=== PATIENT | female | born 1955 | race Caucasian/White ===

== ENCOUNTER → 2019-03-03 18:03 | Outpatient (CLI) | payer BC ==
[2013-02-04 11:04] VITALS: BMI 32.2
[~2019-03-03 18:03] MED LIST: BUDEPRION XL150 MG PO; CATAPRES0.1 MG PO; CELEXA40 MG PO; ESGIC TABLET1 TAB PO; MULTI-DAY VITAM1 TAB PO; NORCO 10/325 TA1 TA1 PO; OPANA ER20 MG PO; OXYCONTIN30 MG PO; PERCOCET 10/3251 TA1 PO; PRINZIDE 10/12.1 TAB PO; SOMA350 MG PO; WELLBUTRIN XL150 M1 PO; WELLBUTRIN100 MG PO; XANAX2 MG PO; XARELTO10 MG PO
[2019-03-03 19:03] LABS: BASOPHILS 0.7 % (0-2); EOSINOPHILS 2.2 % (0-7); HEMATOCRIT 33.3 % (36.0-48.0); HEMOGLOBIN 9.8 g/dL (12-16); IMMATURE GRANULOCYTES 0.1 % (0-5); LYMPHOCYTES 41.6 % (15-50); MCH 22.3 pg (26.0-34.0); MCHC 29.4 g/dL (31.0-37.0); MCV 75.9 fL (80.0-100.0); MEAN PLATELET VOLUME 9.4 fL (7.4-10.4); MONOCYTES 8.4 % (2-11); PLATELET COUNT 412 10x3/uL (130-400); RBC 4.39 10x6/uL (4.00-5.40); RDW 20.1 % (11.5-14.5); WBC 6.9 10x3/uL (4.8-10.8)
[2019-03-03 20:08] LABS: ERYTHROCYTE SEDIMENTATION RATE 41 mm/hr (0-30)
== END | disposition home or self-care (01) ==
LOC: D.LABREF 18:03
PROVIDERS: ATTEND Orthopaedic Surgery
DX: M17.11 Unilateral primary osteoarthritis, right knee (principal)

== ENCOUNTER 2019-04-22 08:52 | Outpatient (CLI) | payer BC ==
[~2019-04-22] VITALS: Ht 167.6 cm; Wt 90.0 kg
--- NOTE | ~2019-04-22 | HEMODYNAMI ---
PATIENT:SRINIVASAN ALVA MEDICAL RECORD: [id number] : 57 LOCATION:[facility] D.2[address] [facility]# [id number] ADMISSION DATE: 04/22/19 Generatedon:04/22/201915:52 Patient name: SRINIVASAN ALVA Patient #: [id number] SSN: [id number] : 1955 Date of study: 04/22/2019 Page: Of Hemodynamic Procedure Report Patient Data Patient Demographics Procedure consent was obtained First Name: SRINIVASAN Gender: Female Last Name: ARTIE : 1955 Middle Initial: H Age: 63 year(s) Patient #: [id number] Race: SSN: [id number] Additional ID: [id number] Contact details Address: [address] [place] [address] State: [place] City: [place] Zip code: [address] Past Medical History Allergies: No known allergies Admission Admission Data Admission Date: 04/22/2019 Admission Time: 8:52 Arrival Date: 04/22/2019 Arrival Time: 0:00 Admit Source: Emergency Insurance Payor: Private department health insurance Room #: D.2114 [facility] #: [id number] Height (in.): 66.14 BSA: 2 (m2) Height (cm.): 168 BMI: 31.89 (kg/m2) Weight (lbs.): 198.42 Weight (kg.): 90 Lab Results Lab Result Date: 04/22/2019 Lab Result Time: 0:00 Biochemistry Name Units Result Min Max BUN mg/dl 14 --(--*-)-- 7 18 CK-MB ng/ml 0.4 --(*---)-- 0 3.6 Creatinine mg/dl 0.9 --(-*--)-- 0.6 1.3 eGFR ml/min 67.11152 *-(----)-- 90 120 NONAFRICAN Troponin l ng/ml 0.017 --(-*--)-- 0 0.06 CBC Name Units Result Min Max Hematocrit % 32.9 *-(----)-- 42 54 Hemoglobin g/dl 10.2 *-(----)-- 13.5 17.5 Procedure Procedure Types Cath Procedure Diagnostic Procedure [facility] w/Coronaries FFR/IVUS FFR Initial FFR Additional Sedation Charges Moderate Sedation up to 15 minutes PCI Procedure Coronary Stent Coronary Stent Initial x2 Hemochron ACT Test Procedure Description Procedure Date Procedure Date: 04/22/2019 Procedure Start Time: 15:26 Procedure End Time: 15:50 Procedure Staff Name Function Ramirez Guy MD Performing Physician Woodrow Laguerre RT Monitor Jacinda Nielsen RN Nurse Marbella Cox RT Scrub Indication Chest pain Procedure Data Cath Procedure Fluoroscopy Diagnostic fluoroscopy Total fluoroscopy Time: 5.1 time: 5.1 min min Diagnostic fluoroscopy Total fluoroscopy dose: dose: 314.07 mGy 314.07 mGy Contrast Material Contrast Material Type Amount (ml) Isovue 370 105 Entry Location Entry Primary Successful Side Size Upsize Upsize Entry Closure Guerrero ccessful Closure Location (Fr) 1 (Fr) 2 (Fr) Remarks Device Remarks Femoral Right 6 Fr Mechanical artery Short Compression Estimated blood loss: 10 ml Diagnostic catheters Device Type Used For End Catheter Placement DIAGNOSTIC Hines 110cm 5 Procedure Fr catheter ([id number]) Procedure Complications No complications Procedure Medications Medication Administration Route Dosage 0.9% NaCl I.V. 100 ml/hr Lidocaine 2% added to field 20 Heparin Flush Bag added to field 2 bags (1000units/500ml NS) Oxygen NC 2 l/min Versed I.V. 1 mg Fentanyl I.V. 50 mcg Fentanyl I.V. 50 mcg Versed I.V. 1 mg Versed I.V. 1 mg Heparin Bolus I.V. 4000 units Versed I.V. 1 mg Hemodynamics Rest BSA: 2 (m2) O2 Consumption: Estimated: 183.41 (ml/min) O2 Consumption indexed: E stimated:91.7 (ml/min/m) Heart Rate: 63 (bpm) Pressure Samples Time Site Value (mmHg) Purpose Heart Use Rate(bpm) 15:33 AO 106/55(77) Snapshot 71 Snapshots Pre Cath Intra NCS Post Cath Vital Signs Time Heart Resp SPO2 etCO2 NIBP Rhythm Pain Sedation Rate (ipm) (%) (mmHg) (mmHg) Status Level (bpm) 15:17:27 64 16 94 28.5 127/64(91) NSR (Missing) 10(A) 15:21:41 62 20 93 33 111/59(84) NSR (Missing) 10(A) 15:25:49 63 10 94 9 106/60(77) NSR (Missing) 9(A) 15:29:55 60 10 96 35.3 94/63(82) NSR (Missing) 9(A) 15:34:47 69 11 92 29.2 114/68(92) NSR (Missing) 9(A) 15:38:57 68 12 94 9.7 114/60(81) NSR (Missing) 9(A) 15:43:05 66 12 95 0 110/64(77) NSR (Missing) 9(A) 15:47:11 67 13 93 30 119/63(87) NSR (Missing) 10(A) Medications Time Medication Route Dose Verified Delivered Reason Notes Ef fectiveness by by 15:20:04 0.9% NaCl I.V. 100 Ramirez Jacinda used for ml/hr Malena MCNAIR Morales datastage architect 15:20:12 Lidocaine 2% added 20ml Ramirez Jacinda for local to vial Malena Christieelor anesthetic field RN 15:20:21 Heparin Flush added 2 Ramirez Jacinda used for Bag to bags Malena Sandovalor procedure (1000units/500ml field RN NS) 15:20:29 Oxygen NC 2 Ramirez Jacinda for low 02 l/min Malena Christieelor sats RN 15:22:06 Versed I.V. 1 mg Ramirez Jacinda for Malena MCNAIR Morales sedation RN 15:22:14 Fentanyl I.V. 50 Ramirez Jacinda for mcg Malena MCNAIR Morales sedation RN 15:26:18 Fentanyl I.V. 50 Ramirez Jacinda for mcg Malena MCNAIR Morales sedation RN 15:26:24 Versed I.V. 1 mg Ramirez Jacinda for Malena MCNAIR Morales sedation RN 15:30:31 Versed I.V. 1 mg Ramirez Jacinda for Malena MCNAIR Morales sedation RN 15:34:06 Versed I.V. 1 mg Ramirez Jacinda for Malena MCNAIR Morales sedation RN 15:36:21 Heparin Bolus I.V. 4000 Ramirez Monaco Per verified units Malena Nielsen physician with dr. BRENDA guy Procedure Log Time Note 14:45:02 Woodrow Laguerre RT(R) sent for patient. Start room use. 14:46:34 Informed consent obtained and on chart 14:47:25 Indication : Chest pain 14:48:42 Procedure Status Urgent Heart Cath (IP). 14:48:53 Time tracking: Regular hours (M-F 7:00 - 5:00) 14:50:45 Arrival Date: 04/22/2019 12:00:00 AM 14:51:08 Insurance Payor : Private health insurance 14:51:13 Patient Height : 66.14 inches 14:51:19 Patient Weight : 198.42 lbs 14:51:23 Admit Source: Emergency department 14:52:33 Lab Result : CK-MB 0.4 ng/ml 14:52:33 Lab Result : Creatinine 0.9 mg/dl 14:52:33 Lab Result : BUN 14 mg/dl 14:52:33 Lab Result : Hematocrit 32.9 % 14:52:33 Lab Result : eGFR NONAFRICAN 67.36319 ml/min 14:52:33 Lab Result : Troponin l 0.017 ng/ml 14:52:33 Lab Result : Hemoglobin 10.2 g/dl 14:53:02 Patient allergic to No known allergies 14:53:13 Lab results completed and on chart. 14:56:29 Risk of Mortality: 4.9 14:56:35 Risk of blood transfusion: 8.1 14:56:41 Risk of MORTEZA: 1.8 14:56:49 Stress Test: no; N/A ? 14:58:12 Plan of Care:Hemodynamics will remain stable., Cardiac rhythm will remain stable., Comfort level will be maintained., Respiratory function will remain adequate., Patient/ family verbilizes understanding of procedure., Procedure tolerated without complication., Recovers from procedure without complications.. 15:09:38 Patient received from Med II to CCL 3 Alert and oriented. Tansferred to table in Supine position. 15:16:17 Vital chart was started 15:20:04 0.9% NaCl 100 ml/hr I.V. was administered by Jacinda Nielsen RN; used for procedure; Verbal order read back and verified. 15:20:12 Lidocaine 2% 20ml vial added to field was administered by Jacinda Nielsen RN; for local anesthetic; Verbal order read back and verified. 15:20:21 Heparin Flush Bag (1000units/500ml NS) 2 bags added to field was administered by Jacinda Nielsen RN; used for procedure; Verbal order read back and verified. 15:20:29 Oxygen 2 l/min NC was administered by Jacinda Nielsen RN; for low 02 sats; Verbal order read back and verified. 15:20:55 Warm blankets applied, and manuel hugger turned on for patient comfort. 15:20:56 Correct patient and procedure confirmed by team. 15:20:56 ECG and BP/O2 sat monitors applied to patient. 15:20:57 Baseline sample Acquired. 15:21:01 Rhythm: sinus rhythm 15:21:02 Full Disclosure recording started 15:21:07 H&P Date Dictated: 04/22/2019 Emergent; H&P N/A. 15:21:08 Pre-procedure instructions explained to patient. 15:21:08 Pre-op teaching completed and patient verbalized understanding. 15:21:10 Family in waiting room. 15:21:12 Patient NPO since Midnight. 15:21:15 Is the patient allergic to Iodine/contrast media? No. 15:21:16 Is patient on blood thinner?Yes 15:21:18 ACC The patient was administered the following blood thiners within the last 24 hours: ACCPlavix 15:21:21 Patient diabetic? No. 15:21:24 Previous problem with sedation/anesthesia? No ? 15:21:25 Snore? Yes 15:21:26 Sleep apnea? No 15:21:27 Deviated septum? No 15:21:28 Opens mouth fully? Yes 15:21:28 Sticks out tongue? Yes 15:21:30 Airway obstruction? No ? 15:21:34 Dentures? Yes IN TIGHT 15:21:38 Pre procedure: right dorsailis pedis pulse 1+ Palpable, but thready & weak; easily obliterated 15:21:40 Modified Bishop's test Ulnar < 7 seconds 15:21:43 Patient pain scale 0/10 ?. 15:21:48 IV patent on arrival in right forearm with 0.9% NaCl at [facility]. 15:21:58 Right Radial & Right Groin area was prepped with chlora-prep and draped in sterile fashion 15::59 Alarms reviewed by R. N. 15::59 Sharps counted by scrub and verified by R.N. 15:22:02 Use device set Radial Dx or PCI 15:22:04 Tegaderm 4 x 4 (1626W) opened to sterile field. 15:22:05 ACIST Syringe (80721) opened to sterile field. 15:22:05 Medline Cath Pack ([id number]) opened to sterile field. 15:22:06 Versed 1 mg I.V. was administered by Jacinda Nielsen RN; for sedation; Verbal order read back and verified. 15:22:06 Bag Decanter (2002S) opened to sterile field. 15:22:06 ACIST Hand Control (66818) opened to sterile field. 15:22:06 ACIST Manifold (59348) opened to sterile field. 15:22:07 MBrace Wrist Support (955108107) opened to sterile field. 15:22:08 EMERALD Guide Wire (836-445) opened to sterile field. 15:22:09 SHEATH 6FR RAIN (0953569) opened to sterile field. 15:22:14 Fentanyl 50 mcg I.V. was administered by Jacinda Nielsen RN; for sedation; Verbal order read back and verified. 15:22:46 ACC Patient presents with Unstable Angina CCS Anginal Class 4--Inability to carry out any physical activity w/o angina. Angina may occur at rest. 15:22:50 Physician arrived 15:22:50 --------ALL STOP TIME OUT------ 15:22:51 Final Timeout: patient, procedure, and site verified with staff and physician. All members of the team are in agreement. 15::59 Right Radial & Right Groin site verified by team. 15:23:04 Fire Safety Assessment: A--An alcohol-based skin anteseptic being used preoperatively., C--Open oxygen or nitrous oxide is being used., D--An ESU, laser, or fiber-optic light is being used. 15:23:07 Physical assessment completed. ASA score P 2 - A patient with mild systemic disease as per Ramirez Guy MD. 15:23:16 2) 60-89 Mildly reduced kidney function, and other findings (as for stage 1) point to kidney disease. 15:23:22 Maximum allowable contrast dose (3.7 X eGFR X 0.75)186 ml. 15::28 Sedation plan: IV Moderate Sedation Medication:Versed, Fentanyl 15::18 Fentanyl 50 mcg I.V. was administered by Jacinda Nielsen RN; for sedation; Verbal order read back and verified. 15::24 Versed 1 mg I.V. was administered by Jacinda Nielsen RN; for sedation; Verbal order read back and verified. 15::44 Procedure started. 15::48 Local anesthetic to right radial artery with Lidocaine 2% by Ramirez Guy MD.INITIAL ACCESS ONLY 15:27:06 Zero performed for pressure channel P1 15:27:21 Zero performed for pressure channel P1 15::24 Zero performed for pressure channel P1 15::26 Zero performed for pressure channel P1 15:27:29 Zero performed for pressure channel P1 15::31 Zero performed for pressure channel P1 15::49 A 6 Fr Short sheath was inserted into the Right Femoral artery 15:29:13 IV Extension Set opened to sterile field. 15:29:49 A DIAGNOSTIC Hines 110cm 5 Fr catheter (168920) was advanced over the wire and used for Procedure. 15:30:00 LV angiography performed. 15:30:03 LV gram done using ROYAL 15:30:22 EF : 60 % 15::26 Injector settings: Ml/sec: 5, Volume: 15, 15:30:31 Versed 1 mg I.V. was administered by Jacinda Nielsen RN; for sedation; Verbal order read back and verified. 15:31:22 LCA angiography performed. 15:31:24 ACCDominant side:Left 15:32:25 RCA angiography performed. 15:32:28 Catheter removed. 15:32:45 Use device set MALENA PCI 15:33:02 Concord Verrata Plus pressure wire (36260C) opened to sterile field. 15:33:08 GUIDE 6FR AR 1.0 catheter ([id number]) opened to sterile field. 15:33:33 6 Fr AR 1 guide catheter was inserted over the wire 15:34:06 Versed 1 mg I.V. was administered by Jacinda Nielsen RN; for sedation; Verbal order read back and verified. 15:34:23 FFR/IFR wire advanced. 15:34:32 Wire advanced across lesion. 15:35:08 pRCA lesion measured at 0.84 with IFR 15:35:37 Pre PCI Site: [place] pRCA has 70% stenosis. 15:35:41 ACC Pre-intervention LEWIS Flow is 3. 15:36:21 Heparin Bolus 4000 units I.V. was administered by Jacinda Nielsen RN; Per physician; verified with dr. guy Verbal order read back and verified. 15:36:27 Place stent Inflation Number: 1 A MITCHEL RX 3.0 x 12 stent ([id number]) was prepped and advanced across the Prox RCA 70. The stent was deployed at 17 SAFIA for 0:10 (min:sec) 0. 15:37:20 Inflation number: 2 The stent balloon was then re-inflated across the Prox RCA 0 to 21 SAFIA for 0:10 (min:sec) . 15:37:26 Stent catheter was removed intact over wire. 15:37:27 Wire removed. 15:37:27 Guide catheter removed. 15:37:52 Post PCI Site: [place] pRCA has 0% stenosis. 15:38:17 ACC Post-intervention LEWIS Flow is 3. 15:39:18 INFLATOR Merit BasixCompak (MZ1971) opened to sterile field. 15:39:24 GUIDE 6FR XBLAD 3.5 catheter ([id number]) opened to sterile field. 15:39:43 6 Fr XBLAD 3.5 guide catheter was inserted over the wire 15:39:46 FFR/IFR wire advanced. 15:40:18 Wire advanced across lesion. 15:42:02 mLAD lesion measured at 0.81 with IFR 15:42:09 Pre PCI Site: [place] mLAD has 70% stenosis. 15:42:13 ACC Pre-intervention LEWIS Flow is 3. 15:43:22 Place stent Inflation Number: 1 A MITCHEL RX 3.0 x 12 stent ([id number]) was prepped and advanced across the Mid LAD 70. The stent was deployed at 21 SAFIA for 0:10 (min:sec) 0. 15:43:54 Stent catheter was removed intact over wire. 15:43:55 Wire removed. 15:43:55 Guide catheter removed. 15:44:00 Post PCI Site: [place] mLAD has 0% stenosis. 15:44:02 ACC Post-intervention LEWIS Flow is 3. 15:44:07 ZEPHYR REGULAR TR BAND (652537) opened to sterile field. 15:44:18 Sheath removed intact; hemostasis achieved with Mechanical Compression to the Right Femoral artery. 15:44:20 Procedure ended.(Physican Out) 15:47:26 Fluoroscopy time 05.10 minutes. 15:47:31 Fluoroscopy dose: 314.07 mGy 15:47:31 Flurop Dose total: 314.07 15:47:43 Dose Area Product 64533.4 mGy/cm. 15:48:07 Contrast amount:Isovue 370 105ml. 15:48:10 Maximum allowable dose exceeded? No. 15:48:14 Sharps counted by scrub and verified by R.N. 15:48:16 [place] band inflated with 10cc of air. 15:48:18 Insertion/operative site no bleeding no hematoma. 15:48:18 Post Procedure Pulses reassessed and unchanged 15:48:21 Post-procedure physical assessment completed. ASA score P 2 - A patient with mild systemic disease as per Ramirez Guy MD. 15:48:23 Post procedure rhythm: unchanged. 15:48:26 Estimated blood loss: 10 ml 15:48:27 Post procedure instruction explained to patient.Patient verbalizes understanding. 15:48:28 Patient needs reinforcement of post procedure teaching. 15:48:56 Procedure type changed to Cath procedure, Diagnostic procedure, C, [facility] w/Coronaries, FFR/IVUS, FFR Initial, FFR Additional, Sedation Charges, Moderate Sedation up to 15 minutes, PCI procedure, Coronary Stent, Coronary Stent Initial x2, Hemochron ACT Test 15:48:58 Procedure and supply charges have been captured, reviewed, submitted and are correct. 15:49:00 Procedure Complication : No complications 15:49:42 Vital chart was stopped 15:49:44 [facility] Findings: MVD- PCI performed (see procedure note) 15:49:45 Operative report dictated upon procedure completion. 15:49:45 See physician's report for complete and final results. 15:50:16 ACT drawn and resulted at >400 TOO HIGH seconds. (normal therapeutic range 180-240 seconds). 15:50:34 Report given to PCU. 15:50:37 Patient transfered to PCU with Bed. 15:50:39 Procedure ended. 15:50:39 Full Disclosure recording stopped 15:51:37 End room use (Document Last) 15:51:48 End room use (Document Last) 15:52:15 End room use (Document Last) Intervention Summary Intervention Notes Time ActionType Lesion and Equipment Used Action# Pressure Duration Attributes 15:36:27 Place stent Prox RCA MITCHEL RX 3.0 x 1 17 00:10 12 stent ([id number]) 15:37:20 Reinflate Prox RCA MITCHEL RX 3.0 x 2 21 00:10 stent 12 stent balloon ([id number]) 15:43:22 Place stent Mid LAD MITCHEL RX 3.0 x 1 21 00:10 12 stent ([id number]) Device Usage Item Name Manufacture Quantity Catalog Hospital Part Current Minimal Lot# / Number Charge Number Stock Stock Serial# Code Tegaderm 4 x 4 3M 1 1626W 370253 338920 253552 5 (1626W) ACIST Syringe Acist 1 90200 459986 818073 870292 20 (85116) Medical Systems Inc Medline Cath Medline 1 [id number] 569837 74586 089280 5 Pack ([id number]) Bag Decanter Microtek 1 2001S 331512 12453 564912 5 (2002S) Medical Inc. ACIST Hand Acist 1 89474 120780 917447 452623 5 Control Medical (42881) Systems Inc ACIST Manifold Acist 1 32778 031173 279949 586684 5 (69116) Medical Systems Inc MBrace Wrist Advanced 1 140-0250-00 017813 67289 842572 5 Support Vascular (573628627) Dynamics EMERALD Guide Cardinal 1 562-588 332946 164229 881839 5 Wire (996-910) Health SHEATH 6FR Cardinal 1 2499411 608550 2523874 578268 5 RAIN (5450988) Health IV Extension Hospira 1 44260-37 074202 88375 979488 5 Set DIAGNOSTIC Terumo 1 40-1538 857525 348186 534018 5 Hines 110cm 5 Fr catheter (262407) Concord Concord 1 18282N 124837 081225213 537189 5 Verrata Plus pressure wire (35032I) GUIDE 6FR AR Medtronic 1 [id number] 647727 82208 244391 1 1.0 catheter (CI7NY48) MITCHEL RX 3.0 x Medtronic 2 [id number] 322672 3088994 732397 5 [id number] 12 stent [id number] ([id number]) INFLATOR Merit Merit 1 QA3085 221836 310159 036298 15 Cequens Medical (KC2360) GUIDE 6FR Cardinal 1 19392299 896204 932512 201613 10 XBLAD 3.5 Health catheter (04925691) ZEPHYR REGULAR Cardinal 1 630022 895295 2264603 571142 5 TR BAND Health (579197) Signature Audit [place] Stage Time Signature Unsigned Intra-Procedure 04/22/2019 Woodrow Laguerre 3:51:48 PM RT(R) Intra-Procedure 04/22/2019 Jacinda 3:52:15 PM Morales RN Intra-Procedure 04/22/2019 Ramirez Guy 3:52:41 PM [facility] [address] [place] [address]
[~2019-04-22 08:52] MED LIST changes: +HYDROCODON-ACE1 EAC7; -NORCO 10/325 TA1 TA1 PO
[2019-04-22] MEDS ORDERED: NORVASC10 MG PO (09:05)
[2019-04-22] MEDS ORDERED: LISINOPRIL40 MG PO (09:05)
[2019-04-22] MEDS ORDERED: TENORMIN50 MG PO (09:05)
[2019-04-22] MEDS ORDERED: BC POWDER (09:06)
[2019-04-22 09:26] LABS: BASOPHILS 0.5 % (0-2); EOSINOPHILS 2.1 % (0-7); HEMATOCRIT 32.9 % (36.0-48.0); HEMOGLOBIN 10.2 g/dL (12-16); IMMATURE GRANULOCYTES 0.2 % (0-5); LYMPHOCYTES 36.2 % (15-50); MCH 22.4 pg (26.0-34.0); MCV 72.1 fL (80.0-100.0); MEAN PLATELET VOLUME 9.6 fL (7.4-10.4); MONOCYTES 6.7 % (2-11); NEUTROPHILS 54.3 % (40-80); PLATELET COUNT 460 10x3/uL (130-400); RBC 4.56 10x6/uL (4.00-5.40); RDW 18.7 % (11.5-14.5); WBC 8.7 10x3/uL (4.8-10.8)
[2019-04-22 09:32] LABS: CALC OSMOLALITY 276 mosm/kg (275-300); CALCIUM 8.3 mg/dL (8.5-10.1); CARBON DIOXIDE 29.9 mmol/L (21.0-32.0); CHLORIDE - SERUM 99 mmol/L (98-107); CREATININE - SERUM 0.9 mg/dL (0.6-1.3); GLUCOSE 101 mg/dL (74-106); POTASSIUM - SERUM 3.4 mmol/L (3.5-5.1); SODIUM 138 mmol/L (136-145); UREA NITROGEN 14 mg/dL (7-18); eGFR NON AFRICAN AMERICAN 67 mL/min (90-120)
[2019-04-22 09:33] LABS: INR 0.97 (0.85-1.17); PROTIME 12.8 SECONDS (11.6-15.0)
[2019-04-22 09:34] LABS: APTT 37.1 SECONDS (22.8-39.4)
[2019-04-22 09:46] LABS: ALBUMIN 3.4 g/dL (3.4-5.0); ALKALINE PHOSPHATASE 167 U/L (30-120); ALT (SGPT) 16 U/L (10-68); BILIRUBIN - TOTAL 0.18 mg/dL (0.2-1.3); CKMB 0.4 U/L (0.0-3.6); CREATINE KINASE 64 UL (21-215); PROTEIN - SERUM 8.1 g/dL (6.4-8.2); TROPONIN-I < 0.017 ng/mL (0.000-0.060)
--- NOTE | 2019-04-22 15:48 | HP ---
PATIENT: SRINIVASAN ALVA MEDICAL RECORD: [id number] ACCOUNT: [id number] LOCATION:[address] : 57 ADMISSION DATE: 04/22/19 PCP: ROSETTA GREGORY MD HISTORY AND PHYSICAL EXAMINATION DIAGNOSES: 1. Unstable angina class IV. 2. Hypertension. 3. Hyperlipidemia. 4. Smoking. 5. Shortness of breath, dyspnea on exertion. HISTORY OF PRESENT ILLNESS: Mrs. Alva had her first chest pain approximately a week ago. She has had some mild episodes of chest pain throughout the week. She had a severe episode of chest pain today. She had over an hour of chest discomfort, it was atypical chest discomfort, a dull aching pressure sensation across the anterior chest, felt like a weight was on her chest. She was given a sublingual nitro. She had resolution of pain, the pain came back. She was given another sublingual nitro. She had resolution of it. The pain is now coming back again. She has a history of cardiac catheterization approximately 5 years ago with no intervention. She has been on aspirin daily and BC powder daily. PHYSICAL EXAMINATION: CONSTITUTIONAL/GENERAL APPEARANCE: Well nourished, well developed, appears stated age. EYES: Lids and conjunctivae noninjected. No discharge. No pallor. ENT: Lips within normal limit. No cyanosis. No pallor. NECK: Carotid arteries, bilateral normal upstroke. No bruits. No thrills. No jugular venous pressure or distention. CERVICAL LYMPH NODES: Nontender. Nonenlarged. THYROID: Not enlarged. No nodules. CARDIOVASCULAR: Precordial exam, nondisplaced. No heaves or pericardial thrills. Rate and rhythm, regular. Heart sounds, normal S1, normal S2. No S3, no gallop, no rub. Systolic murmur, not heard. Diastolic murmur, not heard. RESPIRATORY: Respiratory effort, unlabored. Normal curvature. No thoracic deformity. No chest wall tenderness. Percussion, resonant. Auscultation, clear. No wheezes, no rales, no rhonchi. ABDOMEN: Soft, nondistended, nontender. No abdominal pain, no vomiting and normal appetite. MUSCULOSKELETAL: No joint tenderness, normal gait, normal tone. SKIN: Warm and dry. OVERALL IMPRESSION: Unstable angina with recurrent pain. We will proceed with coronary angiography. Further care depends upon findings of the angiography. TRANSINT:[id number] Voice Confirmation ID: [id number] DOCUMENT ID: [id number] HISTORY AND PHYSICAL [id number] SRINIVASAN ALVA JEFFREY MD at 1548 CC: [id number] DICTATION DATE: 04/22/19 1033 INFORMATION ASSURANCE ANALYST: 04/22/19 1121 REG [facility] [address] [place] [id number]
[2019-04-22 16:00] VITALS: BP 108/63
--- NOTE | 2019-04-22 16:12 | NUR ---
transfer from slab tripper. reinier. franky wrust stable with z-bznd intact. will monitor.
[2019-04-22] MEDS ORDERED: BAYER CHEWABLE81 MG PO (16:16)
[2019-04-22 16:20] VITALS: BP 104/63; Ht 167.6 cm; Wt 90.0 kg
[2019-04-22] MEDS ORDERED: PLAVIX75 MG PO (16:24)
[2019-04-22] MEDS ORDERED: PRAVACHOL20 MG PO (16:25)
--- NOTE | 2019-04-22 19:08 | NUR ---
RECEIVED BEDSIDE REPORT. PATIENT IS RESTING COMFORTABLY IN BED. RESPIRATIONS ARE EVEN AND UNLABORED. NO S/S OF DISTRESS. NO C/O PAIN. CALL LIGHT WITHIN REACH. WILL CPOC.
--- NOTE | 2019-04-22 19:10 | NUR ---
RELEASED 2 ML OF AIR FROM TR BAND. NO S/S OF BLEEDING, BRUISING, HEMATOMA. CALL LIGHT WITHIN REACH. WILL CPOC.
--- NOTE | 2019-04-22 19:30 | NUR ---
RELEASED 2 ML FROM TR BAND. NO S/S OF BLEEDING, BRUISING, HEMATOMA.
--- NOTE | 2019-04-22 19:45 | NUR ---
RELEASED 2 ML OF AIR FROM TR BAND. NO S/S OF BLEEDING, BRUISING, OR HEMATOMA. CALL LIGHT WITHIN REACH. WILL CPOC.
--- NOTE | 2019-04-22 20:10 | NUR ---
RELEASES 2 ML OF AIR FROM TR BAND. NO S/S OF BLEEDING, BRUISING, OR HEMATOMA. CALL LIGHT WITHIN REACH. WILL CPOC.
--- NOTE | 2019-04-22 20:35 | NUR ---
RELEASED 2 ML OF AIR FROM TR BAND. NO S/S OF BLEEDING, BRUISING OR HEMATOMA. TR BAD REMOVED. INSERTION SITE CLEANED WITH ALCOHOL PAD AND BAND AID PLACED. WENT OVER DISCHARGE INSTRUCTIONS. REMOVED PATIENT IV, CATH INTACT. TELEMERTY REMOVED AND RETURNED TO RESIDENT SERVICES COORDINATOR.
--- NOTE | 2019-04-22 20:58 | NUR ---
PATIENT DISCHARGED. PATIENT ESCORTED OFF FLOOR BY AS400 PROGRAMMER ANALYST.
--- NOTE | 2019-04-23 12:54 | OP ---
PATIENT NAME: SRINIVASAN ALVA MEDICAL RECORD: [id number] :57 LOCATION:D.M2 ADMISSION DATE: SURGEON: LELO TOBAR MD DATE OF OPERATION: 04/22/2019 PROCEDURES: 1. PTCA stent LAD. 2. PTCA stent RCA. 3. IFR LAD. 4. IFR RCA. 5. Left heart catheterization. 6. Selective coronary angiography. 7. Left ventriculogram. INDICATION: Angina and coronary artery disease. PROCEDURE IN DETAIL: After informed consent was obtained and after a detailed description of risks, benefits as well as alternative therapies, the patient elected to proceed with angiogram and angioplasty. The right radial area was prepped and draped in normal sterile fashion. Right radial artery was cannulated via modified Seldinger technique with placement of 6-Pashto sheath. All catheters exchanged through this sheath. FINDINGS: Left ventriculogram was performed in standard 30-degree ROYAL view, reveals good cardiac wall motion throughout all segments. Overall ejection fraction estimated at 60%. SELECTIVE CORONARY ANGIOGRAPHY: 1. Left main is with no significant angiographic disease. 2. Left anterior descending has a possible 70% stenosis in the mid vessel. IFR is abnormal. 3. Left circumflex has mild irregularities, but no flow-limiting stenosis. 4. The right coronary artery is with a possible 70% stenosis in the proximal vessel. IFR is abnormal throughout. PTCA STENT OF THE RCA: The stent used is a 3.0 x 12 mm [place]. Result was 0% residual stenosis throughout. PTCA STENT OF THE LAD: The stent used was a 3.0 x 12 mm [place]. Result was 0% residual stenosis. OVERALL IMPRESSION: Successful percutaneous transluminal coronary angioplasty stent of the left anterior descending and right coronary artery, both going from 70% initial stenosis with abnormal IFR to 0% residual stenosis. TRANSINT:[id number] Voice Confirmation ID: [id number] DOCUMENT ID: [id number] OPERATIVE REPORT [id number] SRINIVASAN ALVA LELO TOBAR MD at 1254 CC: [id number] DICTATION DATE: 04/22/19 1549 ACCOUNTS PAYABLES CLERK: 04/22/19 2354 DEP CLI 04/22/19 [place] [address]
== END 2019-04-22 21:00 | disposition home or self-care (01) ==
LOC: D.M2 08:52 → D.ER 08:52 → D.M2 14:36 → EDSTATUS 14:37 → D.M2 21:00
PROVIDERS: Family Medicine; ATTEND Internal Medicine Interventional Cardiology
DX: I25.119 Atherosclerotic heart disease of native coronary artery with unspecified angina pectoris (principal); I10 Essential (primary) hypertension

== ENCOUNTER → 2019-10-19 23:04 | Outpatient (CLI) | payer OTHER ==
[2019-04-22 16:20] VITALS: BMI 32.0
[~2019-10-19 23:04] MED LIST changes: +BAYER CHEWABLE81 MG PO; +BC POWDER; +LISINOPRIL40 MG PO; +NORVASC10 MG PO; +PLAVIX75 MG PO; +PRAVACHOL20 MG PO; +TENORMIN50 MG PO
== END | disposition home or self-care (01) ==
LOC: D.MAMMO 09:15
PROVIDERS: ATTEND Nurse Practitioner Family
DX: Z12.31 Encounter for screening mammogram for malignant neoplasm of breast (principal)

== ENCOUNTER → 2020-06-09 18:18 | Outpatient (CLI) | payer OTHER ==
[2019-04-22 16:20] VITALS: BMI 32.0
[2020-06-09 18:50] LABS: BASOPHILS 0.2 % (0-2); EOSINOPHILS 1.3 % (0-7); HEMATOCRIT 39.1 % (36.0-48.0); IMMATURE GRANULOCYTES 0.2 % (0-5); LYMPHOCYTE ABS# 2.23 10x3/uL (1.18-3.74); MCH 26.1 pg (26.0-34.0); MCHC 30.7 g/dL (31.0-37.0); MEAN PLATELET VOLUME 10.1 fL (7.4-10.4); MONOCYTES 5.7 % (2-11); NEUTROPHIL ABS# 5.71 10x3/uL (1.56-6.13); NEUTROPHILS 66.6 % (40-80); RDW 17.4 % (11.5-14.5); WBC 8.6 10x3/uL (4.8-10.8)
[2020-06-09 18:55] LABS: PLATELET COUNT 327 10x3/uL (130-400)
[2020-06-09 20:09] LABS: ERYTHROCYTE SEDIMENTATION RATE 29 mm/hr (0-30)
== END | disposition home or self-care (01) ==
LOC: D.LABREF 18:18
PROVIDERS: ATTEND Clinical Nurse Specialist Family Health
DX: M25.561 Pain in right knee (principal)

== ENCOUNTER 2020-06-16 15:39 | Inpatient (IN) | payer OTHER ==
[~2020-06-16] VITALS: Ht 165.1 cm; Wt 85.7 kg
[~2020-06-16 15:39] MED LIST changes: -HYDROCODON-ACE1 EAC7; +HYDROCODON-ACE1 EAC7 PO
[2020-07-19] MEDS ORDERED: METOPROLOL TART50 MG PO (10:50)
[2020-07-19] MEDS ORDERED: BUSPAR 15 MG TA15 MG PO (10:51)
[2020-07-19] MEDS ORDERED: LIPITOR20 MG PO (10:51)
[2020-07-19] MEDS ORDERED: BUPROPION HCL150 M1 PO (10:51)
[2020-07-21] MEDS ORDERED: LIPITOR10 MG PO (08:05)
[2020-07-21] MEDS ORDERED: TRAZODONE HCL50 MG PO (08:06)
[2020-07-21] MEDS ORDERED: BACLOFEN20 M1 PO (08:07)
[2020-07-21] MEDS ORDERED: ABILIFY10 MG PO (08:08)
[2020-07-21] MEDS ORDERED: GABAPENTIN100 MG PO (08:08)
[2020-07-22 10:58] LABS: BASOPHILS 0.4 % (0-2); EOSINOPHILS 1.5 % (0-7); HEMATOCRIT 39.1 % (36.0-48.0); HEMOGLOBIN 12.5 g/dL (12-16); IMMATURE GRANULOCYTES 0.1 % (0-5); LYMPHOCYTE ABS# 2.34 10x3/uL (1.18-3.74); LYMPHOCYTES 30.9 % (15-50); MCH 26.7 pg (26.0-34.0); MCV 83.5 fL (80.0-100.0); MEAN PLATELET VOLUME 9.6 fL (7.4-10.4); MONOCYTES 7.3 % (2-11); NEUTROPHIL ABS# 4.53 10x3/uL (1.56-6.13); NEUTROPHILS 59.8 % (40-80); PLATELET COUNT 299 10x3/uL (130-400); RBC 4.68 10x6/uL (4.00-5.40); RDW 16.6 % (11.5-14.5)
[2020-07-22 10:59] LABS: BILIRUBIN NEGATIVE (NEGATIVE); KETONE NEGATIVE (NEGATIVE); NITRITE NEGATIVE (NEGATIVE); UROBILINOGEN NORMAL mg/dL (< 2); WHITE CELLS - URINE 3 HPF (0-4)
[2020-07-22 11:00] LABS: BACTERIA FEW HPF (NONE SEEN)
[2020-07-22 11:01] LABS: WBC 7.6 10x3/uL (4.8-10.8)
[2020-07-22 11:10] LABS: APTT 32.9 SECONDS (22.8-39.4); INR 1.06 (0.85-1.17); PROTIME 12.8 SECONDS (11.6-15.0)
[2020-07-22 11:12] LABS: CALC OSMOLALITY 285 mosm/kg (275-300); CALCIUM 8.9 mg/dL (8.5-10.1); CARBON DIOXIDE 31.2 mmol/L (21.0-32.0); CHLORIDE - SERUM 105 mmol/L (98-107); CREATININE - SERUM 0.8 mg/dL (0.6-1.3); GLUCOSE 94 mg/dL (74-106); POTASSIUM - SERUM 4.1 mmol/L (3.5-5.1); SODIUM 143 mmol/L (136-145); UREA NITROGEN 15 mg/dL (7-18); eGFR NON AFRICAN AMERICAN 77 mL/min (90-120)
[2020-07-26] VITALS (8 sets, daily range): BP systolic 117–131; BP diastolic 62–69; Ht 165.1 cm; Wt 85.7 kg
--- NOTE | 2020-07-26 16:10 | NUR ---
PT OPERATIVE LEG CLEANSSED WITH HIBECLENS AND ALCOHOL FROM THIGH TO TOES CIRCUMFERENTIALLY PRIOR TO PREP. RN IN STERILE ATTIRE TO PREP. PREP FROM RIGHT THIGH TO TOES CIRCUMFERENTIALLY PLASMA BLADE SET TO 6/8 GROUNDING PAD LOT#[id number] EXP 04/24/2022
--- NOTE | 2020-07-26 19:00 | NUR ---
REPORT GIVEN BY BRENDA DOTY. PT IS CRYING IN PAIN. PT STATES SHE DOES NOT WANT ANY MORPHINE BECAUSE IT GIVES HER A BAD HEADACHE. SOREN GAVE HER A COMBINATION OF MED TO HELP HER PAIN.
--- NOTE | 2020-07-26 19:30 | NUR ---
PT IS A FRESH POST OP PT OF DR. FRANKEL S/P RIGHT TK REVISION. PT IS IN NO PAIN AT THIS TIME. SHE IS SATING IN THE HIGH 90S ON ROOM AIR. HER DRESSING IS DRY AND INTACT. HER DAUGHTER IS IN THE ROOM FOR SUPPORT. PT HAS A DINNER TRAY WAITING FOR HER WHEM SHE FEELS LIKE EATING. VS STABLE.
--- NOTE | 2020-07-26 21:00 | NUR ---
PT IS AWAKE WANTING TO GO TO THE BSC. SHE IS DOING WELL WITH TRANSFERS. SHE DOES NEED MOD ASSIST TO GET OUT OF BED AND SITUATIED ON THE BSC. SHE VOIDS A LARGE MASOUD OF YELLOW URINE. MOD ASSIST NEEDED IN GETTING BACK INTO BED. SHE STATES SHE IS FEELING BETTER AND RATES HER PAIN A 4.
--- NOTE | 2020-07-26 21:10 | NUR ---
PT IS C/O OF SOME PAIN RATING IT AN 8 AND REQUESTED PAIN MEDS. PERCOCET 10 GIVEN P O PER ORDER.
[2020-07-27] VITALS: BP 120/62
--- NOTE | 2020-07-27 | NUR ---
ROUNDS MADE. PT STATES PAIN IS AT A 3. NO C/O OR NEEDS
--- NOTE | 2020-07-27 02:21 | NUR ---
PT VOIDED LARGE AMT ON BEDPAN. NO OTHER C/O
--- NOTE | 2020-07-27 04:20 | NUR ---
PT AWAKE FOR VS. PT REQUESTED PAIN MEDS. SHE WAS GIVEN PERCOCET, TORADOL AND VISTARIL. PT HASN'T SLEPT MUCH TONIGHT. PT KNOWS THAT WE'LL BE COMING IN SOON TO PLACE HER CMP
[2020-07-27 04:30] VITALS: BP 131/64
--- NOTE | 2020-07-27 06:24 | NUR ---
PT IS NOW ON HER CPM. SHE WAS MEDICATED BEFORE PLACEMENT. SHE HAS NO C/O AT THIS TIME. PT WAS CONCERNED ABOUT THE BRIGHT RED SEEPAGE FROM HER KNEE INCISION. THIS WAS REINFORCED WITH 4X4S, AN ABD PAD AND TAPE. LINENS CHANGED. PT HAS BEEN ON THE BAD STARK FOR THE SECOND TIME. IV ANTIBIOTIC IS INFUSING.
--- NOTE | 2020-07-27 07:01 | NUR ---
PATIENT LAYING IN BED ON CPM, AWAKE AND ALERT, RT KNEE DRESSING REINFORCED LAST NIGHT PER PATIENT DR WOULD LIKE DRESSING CHANGE TO BE DONE TODAY. NO OTHER NEEDS VOICED, CONTINUE WITH PLAN OF CARE
[2020-07-27 07:11] VITALS: BP 111/59
[2020-07-27 08:05] LABS: BASOPHILS 0.1 % (0-2); EOSINOPHILS 0 % (0-7); HEMOGLOBIN 9.5 g/dL (12-16); IMMATURE GRANULOCYTES 0.3 % (0-5); LYMPHOCYTE ABS# 1.25 10x3/uL (1.18-3.74); LYMPHOCYTES 7.4 % (15-50); MCHC 30.6 g/dL (31.0-37.0); MCV 84.7 fL (80.0-100.0); MEAN PLATELET VOLUME 10.6 fL (7.4-10.4); MONOCYTES 5.5 % (2-11); NEUTROPHIL ABS# 14.65 10x3/uL (1.56-6.13); NEUTROPHILS 86.7 % (40-80); PLATELET COUNT 313 10x3/uL (130-400); RBC 3.66 10x6/uL (4.00-5.40); RDW 16.6 % (11.5-14.5); WBC 16.9 10x3/uL (4.8-10.8)
[2020-07-27 08:23] LABS: ANION GAP 14.1 mmol/L (8-16); BILIRUBIN - TOTAL 0.26 mg/dL (0.2-1.3); CARBON DIOXIDE 26.8 mmol/L (21.0-32.0); CREATININE - SERUM 0.9 mg/dL (0.6-1.3); POTASSIUM - SERUM 4.9 mmol/L (3.5-5.1); PROTEIN - SERUM 6.1 g/dL (6.4-8.2)
--- NOTE | 2020-07-27 09:20 | NUR ---
I have reviewed this patient and I concur with the Shift Assessment completed by the Licensed Practical Nurse today this shift.
--- NOTE | 2020-07-27 09:47 | NUR ---
UPON ENTERING PATIENT ROOM, FOUND PATIENT IN BATHROOM AND BOTH SIDE RAILS STILL UP ON PATIENT BED WELL CPM ON PATIENT BED, SHE STATED " I REALLY NEEDED TO GO TO THE BATHROOM". REMOVED CPM AND STRAIGHTENED BED, ASSSISTED PATIENT BACK TO BED AND REMOVED DRESSING FROM RT KNEE. DRESSINGS SATURATED, AFTER REMOVING ALL DRESSING AND CLEANING SITE PATIENT CONTINUES TO HAVE DRAINAGE FROM TOP OF INCISION. PLACED XEROFORM PETROLEUM DRESSING OVER SITE THEN 2X2 NON WOVEN GAUZE OVER AREA DRAINING AND PLACED MEPILEX DRESSING OVER INCISION. PLACED ICE OVER DRESSING, NO OTHER NEEDS VOICED AT THIS TIME. CONTINUE WITH PLAN OF CARE
--- NOTE | 2020-07-27 10:27 | OP ---
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 INDICATIONS: The patient is a 64-year-old female who underwent right total knee arthroplasty approximately 7 years ago. She says about 2 years ago, she started to feel collapse in the medial tibia and indeed had collapse. She went to severe varus deformity, but she continued to walk on it. She could not have surgery due to cardiac reasons and finally got clearance, wants something done surgically. Obviously I informed of the risks of this including high risk of infection, need for further surgery, failure of implants, instability, need for further surgery, continued pain, further fracture, blood clots and even and she signed the consent. SURGEON: J Luis Moon DO. DESCRIPTION OF PROCEDURE: The patient was taken to the operative suite. After getting a spinal block placed in the supine position, given general sedation, a Vazquez was placed as well. During the procedure, due to the length of it had to be sedated and LMA placed. Initially, the right lower extremity was then prepped and draped in sterile fashion. Timeout was performed. Everyone was in agreement with the correct side, site, patient, and procedure. She received 2 grams of Ancef, 80 mg gentamicin and a gram of TXA. After the right lower extremity had been prepped and draped and a timeout was performed. I began by making an incision over the old incision and covered in Ioban and then made an incision with #10 blade scalpel through the skin down to the capsule. Did a medial parapatellar approach to the capsule and exposed the tibia. The tibia was loose. I removed the pin and the poly, the tibia just came right out. I then made a freshened up cut on the tibia and also had to peel off the tibial tuberosity due to the location of cut and the subsidence of the tibia and planned on tagged and back down of anchors. Once I saw that we could not achieve the stability, we needed, we went and I took the femur off to do a high constrained poly with a posterior stabilized knee. I then removed the femur using flexible osteotomes loosening it up and then reamed the femur and up to the appropriate I believe is a 15 stem in the mid distal cut. I then trialed with 5 distal augments and after cutting out the box for the posterior stabilized poly. We then had reamed the tibia as well. I went up to 15 and put a cone in and had broached for that, set the cone in and irrigated thoroughly and put the implants together with 15 augments on the tibia 5 distal augments on the femur and then the femur was 5. The tibia was in C. We then prepped the tibia and the femur and mixed cement. I irrigated, put the cement on the implants and on the tibia and on the femur back to the tibia on first, held very well. I then impacted the femur on and removed the excess cement from both. I put the trial poly on and brought the knee to extension. While the cement was dry, I put two JuggerKnots into the tibial tubercle above what was left of it and [place] stitch [id number] sutures up into the patellar tendon. I also OPERATIVE REPORT [id number] SRINIVASAN ALVA then put in a 20 poly posterior stabilized and locked it in place and then we did the set screw on the poly. This provided very good stability of medial varus and valgus stress in flexion and extension. I then closed the capsule with #1 Vicryls in a [id number] fashion after having repaired the patellar tendon it was quite stable in extension and flexion and then ran #1 Stratafix on the capsule of the medial side. Again, tested it and it was very stable in flexion and extension to varus and valgus stress. Quinn Paez and Kendell Yepez, certified surgical wheelchair van operator first responder closed the skin with 2-0 Vicryl in inverted interrupted fashion and placed a ZipLine on the knee dressed with Adaptic, 4 x 4s, ABD, cast padding and Mynor wrap, RIMMA hose stocking was placed at the knee. She was then awakened and taken to recovery in stable condition. Blood loss approximately 300 mL. COMPLICATIONS: None. TRANSINT:[id number] Voice Confirmation ID: [id number] DOCUMENT ID: [id number] J LUIS MOON DO at 1027 CC: [id number] DICTATION DATE: 07/26/20 1724 APPLICATION SUPPORT ANALYST: 07/27/20 0247 ADM IN [facility] [address] [id number]
[2020-07-27 11:39] VITALS: BP 117/57
--- NOTE | 2020-07-27 13:53 | NUR ---
PATIENT C/O PAIN IN CALF AND STILL DRAINING AT TOP OF INCISION, CALLED DR MOON WHO STATED HE IS ON HIS WAY DOWN, NO OTHER NEEDS AT THIS TIME. CONTINUE WITH PLAN OF CARE
[2020-07-27 15:35] VITALS: BP 105/53
--- NOTE | 2020-07-27 16:15 | NUR ---
PATIENT VISITING WITH SON AT BEDSIDE, REQUESTED PAIN MEDICATION. CL IN REACH CONTINUE WITH PLAN OF CARE
--- NOTE | 2020-07-27 19:00 | NUR ---
REPORT GIVEN BY CASSANDRA NUÑEZ.
[2020-07-27 19:30] VITALS: BP 93/47
--- NOTE | 2020-07-27 20:30 | NUR ---
PT IS DOING WELL THIS EVENING. SHE NOW HAS A WOUND VAC IN PLACE OVER HER RIGHT KNEE. PT DOES MESS AROUND WITH IT BUT ALWAYS SAYS SHE HAS A GOOD SUCTION. SHE HAS AN IVSL TO THE LEFT FOREARM. SHE HAS BEEN UP WITH PT WITH THE WALKER. SHE TELLS ME SHE IS GOING HOME IN THE MORNING. SHE IS USING HER IS PULLING 1500. NO NEW C/O AT THIS TIME.
--- NOTE | 2020-07-28 00:15 | NUR ---
PT IS SITTING UP ON THE SIDE OF THE BED. I ASKED HER WHERE SHE WAS GOING. SHE STATES THAT SHE WAS JUST GOING TO SIT ON THE SIDE OF THE BED FOR A FEW MINUTES. SHE HAS NO C/O AT THIS TIME.
--- NOTE | 2020-07-28 01:57 | NUR ---
PT KEEPS GETTING UP OUT OF BED AND WANDERING AROUND. SHE CAME OUT IN THE [place] STATING SHE WAS GOING TO GET A COKE FROM THE REFRIGERATOR. SHE WAS ASKED TO PLEASE GET BACK IN BED. SHE DISCONNECTS THE WOUND VAC WHEN SHE WALKS AROUND LIKE THIS. I TOOK HER A COKE TO TRY TO GET HER TO GO BACK TO BED. SHE FOLDELLD HER WALKER UP AND FINALLY GOT IN BED. I TOLD HER I WAS WORRIED ABOUT HER AND THAT I WAS GOING TO TURN ON THE BED ALARM. BEFORE SHE GOT INTO BED SHE HAD HER FEET ALL TANGLED UP IN THE WOUND VAC TUBING. SHE THEN ASKED WHERE HER DAUGHTER WENT. SHE SAID HER DAUGHTER WAS HERE, WAS GOING TO TAKE A SHOWER BUT COULDN'T FIND HER NOW. WE EXPLAINED THAT HER DAUGHTER WAS NOT HERE. SO, NOW PT IS HAVING SOME CONFUSION.
[2020-07-28 04:00] VITALS: BP 135/59
--- NOTE | 2020-07-28 04:52 | NUR ---
PT REQUESTED A PAIN PILL PERCOCET 10 WAS GIVEN PO. PT IS STILL GETTING OUT OF HER BED EVEN WITH THE ALARM ON. PT IS ASKING QUESTIONS LIKE " HOW LONG DID YOU WORK AT [email or web address] WHEN YOU WERE THERE? I TRIED TO REORIENT HER BY SAYING THAT WE WERE BOTH AT [email or web address] NOW. SHE SEEMS TO BE MORE CONFUSED THAN EARLIER.
--- NOTE | 2020-07-28 06:31 | NUR ---
PT IS STILL CONFUSED. SHE THINKS SHE IS AT HOME. WHEN SHE IS REORIENTED TO TIME AND PLACE SHE GETS VERY DEFENSIVE. THIS MORNING SHE INSISTED THAT SHE HAD NEVER HAD A PAIN PILL TO MAKE HER CONFUSED. SHE TELLS ME SHE IS GOING TO ASK THE DRJun TO STOP HER PERCOCET.
--- NOTE | 2020-07-28 07:07 | NUR ---
PATIENT IS C /O WOUND VAC "NOT WORKING" AND PERCOCET MAKING HER CRAZY. INFORMED PATIENT DR WILL BE IN THIS MORNING AND WE CAN DISCUSS OPTIONS FOR HER NO OTHER NEEDS AT THIS TIME. CONTINUE WITH PLAN OF CARE
[2020-07-28 07:52] VITALS: BP 123/60
--- NOTE | 2020-07-28 07:55 | NUR ---
PATIENT TEMP IS 99.8 THIS MORNNG, ENCOURAGED INCENTIVE SPIROMETER, NO OTHER NEEDS VOICED AT THIS TIME. CONTINUE WITH PLAN OF CARE.
[2020-07-28 08:26] LABS: BASOPHILS 0.3 % (0-2); EOSINOPHILS 0.3 % (0-7); HEMATOCRIT 27.3 % (36.0-48.0); HEMOGLOBIN 8.5 g/dL (12-16); IMMATURE GRANULOCYTES 0.2 % (0-5); LYMPHOCYTE ABS# 3.26 10x3/uL (1.18-3.74); LYMPHOCYTES 28.9 % (15-50); MCHC 31.1 g/dL (31.0-37.0); MCV 83.5 fL (80.0-100.0); MEAN PLATELET VOLUME 10.2 fL (7.4-10.4); MONOCYTES 10.4 % (2-11); NEUTROPHIL ABS# 6.77 10x3/uL (1.56-6.13); NEUTROPHILS 59.9 % (40-80); PLATELET COUNT 271 10x3/uL (130-400); RBC 3.27 10x6/uL (4.00-5.40); RDW 16.7 % (11.5-14.5)
[2020-07-28 08:46] LABS: ALBUMIN 3.1 g/dL (3.4-5.0); ALKALINE PHOSPHATASE 132 U/L (30-120); ALT (SGPT) 31 U/L (10-68); CALC OSMOLALITY 288 mosm/kg (275-300); CALCIUM 8.2 mg/dL (8.5-10.1); CARBON DIOXIDE 27.9 mmol/L (21.0-32.0); CHLORIDE - SERUM 108 mmol/L (98-107); CREATININE - SERUM 0.7 mg/dL (0.6-1.3); GLUCOSE 107 mg/dL (74-106); POTASSIUM - SERUM 3.8 mmol/L (3.5-5.1); PROTEIN - SERUM 6.3 g/dL (6.4-8.2); SODIUM 145 mmol/L (136-145); UREA NITROGEN 12 mg/dL (7-18); eGFR NON AFRICAN AMERICAN 89 mL/min (90-120)
[2020-07-28 08:57] LABS: WBC 11.3 10x3/uL (4.8-10.8)
--- NOTE | 2020-07-28 09:57 | NUR ---
PATIENT DAUGHTER CALLED NURSE PHONE INQUIRING ON WHAT TIME DC WILL BE DONE, EXPLAIEND TO HER THAT PATIENT HAS NOT BEEN DC AND IS A BIT CONFUSED THIS MORNING. UPON ENTERING PATIENT ROOM SHE HAD TAKEN HERSELF OFF OF CPM MACHINE AND IS COMPLETELY DRESSED WITH SHOES ON AND BAG PACKED. SHE SAID THAT NURSE TOLD HER DR MOON WAS PUTTING IN DISCHARGE ORDERS SO SHE WAS UNABLE TO MUSA HER ORDERS IN. EXPLAINED TO PATIENT THAT I AM HER NURSE THIS MORNING AND HAS NOT GIVEN ME ANY ORDERS FOR DISCHARGE BUT I WILL DOUBLE CHECK FOR HER. NO OTHER NEEDS AT THIS TIME. CONTINUE WITH PLAN OF CARE
[2020-07-28] MEDS ORDERED: ELIQUIS2.5 MG PO (12:10)
[2020-07-28] MEDS ORDERED: VISTARIL50 MG PO (12:11)
[2020-07-28] MEDS ORDERED: HYDROCODON-ACE1 EA10 PO (12:11)
--- NOTE | 2020-07-28 15:06 | NUR ---
WENT OVER DC PAPERWORK WITH PATIENT, WHILE IN PROCESS OF SWITCHING WOUND VAC OVER, NOTICED THAT PATIENT WV WAS TURNED OFF, PATIENT STATED SHE DID NOT KNOW WHO TURNED OFFR HER WV, BUT EARLIER WHEN SHE WAS WALKING WITH PT HER WOUNDVAC WAS OFF AND I TURNED IT BACK ON. LOOKED AT DRESSING SITE AND AREA WAS NOT SEALED. SENT MESSAGE TO DR MOON IN REGARDS TO WV AND IF HE WOULD LIKE WV TO BE REDONE OR JUST PLACE DRESSING ON SITE, AWAITING REPLY FROM DOCTOR. WHILE WAITING, PATIENT REMOVED WV DRESSING COMPLETELY. I PLACED ICE OVER SITE AND ASKED PATIENT TO STAY SEATED WITH LEGS ELEVATED UNTIL I RETURNED. WHILE SITTING AT DESK WE HEARD WALKER SCRAPING AGAINST FLOOR, LOOKED UP TO FIND PATIENT IN [place], STATED SHE TOOK OUT IV BECUASE I TOLD HER I WOULD REMOVE IT AND HAD NOT. EXPLAINED TO PATIENT THAT WE TYPICALLY DO NOT REMOVE UNTIL PATIENT DC FOR SURE. PTIENT STATED "OH, OK WELL I HAVE ANOTHER ONE". ASSISTED PATIENT BACK TO ROOM AND TO RESTROOM THEN HELPED PATIENT IN BED, PLACED ICE BACK ON PATIENT KNEE AND ELEVATED ON PILLOWS. CONTINUE WITH PLAN OF CARE
[2020-07-28 16:15] VITALS: BP 127/66
--- NOTE | 2020-07-28 16:35 | NUR ---
I have reviewed this patient and I concur with the Shift Assessment completed by the Licensed Practical Nurse today this shift.
--- NOTE | 2020-07-28 17:03 | NUR ---
PATIENT DC HOME WITH MEPILEX DRESSING TO RT KNEE, FOLLOW UP WITH DR MOON IN 2 WEEKS, ALL QUESTIONS ANSWERED, IV DC WITH CATHETER INTACT. PATIENT TAKEN TO FRONT VIA WC WITH BARREL POLISHER
== END 2020-07-28 17:06 | disposition home or self-care (01) | DRG 464 ==
LOC: D.SDCHOLD 07-26 07:00 → EDSTATUS 07-26 07:00 → D.OPS 07-26 07:00 → D.SDCHOLD 07-26 08:55 → D.M3 07-26 08:55 → D.SDCHOLD 07-26 11:00 → D.M3 07-26 12:28
PROVIDERS: Family Medicine; ADMIT Orthopaedic Surgery; ATTEND Orthopaedic Surgery
PROC: 0SRC0N9 Replacement of Right Knee Joint with Patellofemoral Synthetic Substitute, Cemented, Open Approach (ICD-10-PCS; 2020-07-26)
PROC: 0SPC0NZ Removal of Patellofemoral Synthetic Substitute from Right Knee Joint, Open Approach (ICD-10-PCS; principal; 2020-07-26 11:00)
DX: T84.022A Instability of internal right knee prosthesis, initial encounter (principal); D62 Acute posthemorrhagic anemia; M97.11XA Periprosthetic fracture around internal prosthetic right knee joint, initial encounter; I25.10 Atherosclerotic heart disease of native coronary artery without angina pectoris; I10 Essential (primary) hypertension; F32.9 Major depressive disorder, single episode, unspecified; G62.9 Polyneuropathy, unspecified; D64.9 Anemia, unspecified; R41.0 Disorientation, unspecified

== ENCOUNTER → 2020-07-06 09:16 | Outpatient (CLI) | payer OTHER ==
[2019-04-22 16:20] VITALS: BMI 32.0
--- NOTE | ~2020-07-06 | ST ---
PATIENT:SRINIVASAN ALVA MEDICAL RECORD: [id number] SEX: F LOCATION:[facility] ORDER #: ADMISSION DATE: 07/06/20 AGE OF PATIENT: 64 REFERRING PHYSICIAN: INTERPRETING PHYSICIAN: BRENDA BARNETT MD DATE OF SERVICE: 07/06/2020 NUCLEAR STRESS TEST GATED: Normal. Normal wall motion. Normal wall thickening. Calculated EF 71%. SPECT IMAGING: SPECT imaging was performed. 1. Short axis view: Short axis view shows reversible defect from the anterior base down to the mid anterior wall. This is confirmed in the horizontal axis with a reversible defect from the anterior base down to the mid anterior wall. 2. Vertical axis: Vertical axis shows good uptake along the lateral wall and septum. FINAL IMPRESSION: 1. Berenice gated, normal wall motion, ejection fraction 71%. 2. Abnormal SPECT imaging with reversible defect confirmed in 2 views. FINAL IMPRESSION: In this patient with known history of coronary artery disease, this scan is worrisome for ongoing ischemia either restenosis or progression of [place] disease. The size of the defect is medium. Defect severity is moderate. Consider diagnostic angiography if clinically indicated. TRANSINT:[id number] Voice Confirmation ID: [id number] DOCUMENT ID: [id number] BRENDA BARNETT MD CC: [id number] DICTATION DATE: 07/06/20 1626 FISH PITCHER: 07/07/20 0509 [facility] CLI 07/06/20 [address] [place] [address]
[~2020-07-06 09:16] MED LIST changes: +HYDROCODON-ACE1 EAC7; -HYDROCODON-ACE1 EAC7 PO
== END | disposition home or self-care (01) ==
LOC: D.HCCARDIO 09:00
PROVIDERS: ATTEND Internal Medicine Interventional Cardiology
DX: R07.9 Chest pain, unspecified (principal)

== ENCOUNTER 2020-07-21 07:48 | Day surgery (SDC) | payer OTHER ==
[~2020-07-21] VITALS: Ht 167.6 cm; Wt 85.5 kg
--- NOTE | ~2020-07-21 | HEMODYNAMI ---
PATIENT:SRINIVASAN ALVA MEDICAL RECORD: [id number] : 57 LOCATION:[facility] ADMISSION DATE: 07/21/20 Generatedon:110:29 Patient name: SRINIVASAN ALVA Patient #: [id number] SSN: [id number] : 1955 Date of study: 07/21/2020 Page: Of Hemodynamic Procedure Report Patient Data Patient Demographics Procedure consent was obtained First Name: SRINIVASAN Gender: Female Last Name: ARTIE : 1955 Middle Initial: H Age: 64 year(s) Patient #: [id number] Race: SSN: [id number] Additional ID: [id number] Contact details Address: [address] [place] [address] State: [place] City: [place] Zip code: [address] Past Medical History Performed procedures and imaging results Date Procedure Procedure Results Comments Stress testing Positive->Intermediate with SPECT MPI risk History of disease Date Diagnosis Comments CAD Allergies Allergen Reaction Date Comments Reported Other allergy 07/21/2020 PRAVASTATIN Admission Admission Data Admission Date: 07/21/2020 Admission Time: 7:48 Arrival Date: 07/21/2020 Arrival Time: 0:00 Height (in.): 65.75 BSA: 1.94 (m2) Height (cm.): 167 BMI: 30.48 (kg/m2) Weight (lbs.): 187.39 Weight (kg.): 85 Procedure Procedure Types Cath Procedure Diagnostic Procedure LHC LHC w/Coronaries FFR/IVUS FFR Initial Sedation Charges Moderate Sedation 25-39 minutes PCI Procedure Hemochron ACT Test Procedure Description Procedure Date Procedure Date: 07/21/2020 Procedure Start Time: 9:57 Procedure End Time: 10:22 Procedure Staff Name Function Onofre Mancia MD Performing Physician Myrna Patiño RT Monitor Ana Cristina Overton RT Scrub Jm Molina RN Nurse Procedure Data Cath Procedure Fluoroscopy Diagnostic fluoroscopy Total fluoroscopy Time: 2.8 time: 2.8 min min Diagnostic fluoroscopy Total fluoroscopy dose: 551 dose: 551 mGy mGy Contrast Material Contrast Material Type Amount (ml) Isovue 300 48 Entry Location Entry Primary Successful Side Size Upsize Upsize Entry Closure Succes sful Closure Location (Fr) 1 (Fr) 2 (Fr) Remarks Device Remarks Femoral Right 5 Fr Exoseal artery Estimated blood loss: 5 ml Diagnostic catheters Device Type Used For End Catheter Placement MULTIPACK JL 4.0 5Fr Procedure catheter MULTIPACK 3DRC 5Fr Procedure catheter MULTIPACK Pigtail 5 Fr Procedure catheter MULTIPACK JL 4.0 5Fr Procedure catheter Procedure Complications No complications Procedure Medications Medication Administration Route Dosage 0.9% NaCl I.V. 100 ml/hr Oxygen etCO2 Nasal cannula 2 l/min Heparin Flush Bag added to field 2 bags (1000units/500ml NS) Lidocaine 2% added to field 20 Radial Cocktail added to field 1 syringe (Verapamil 2mg/Nitro 400mcg/Heparin 1500units) Versed I.V. 1 mg Fentanyl I.V. 50 mcg Versed I.V. 1 mg Fentanyl I.V. 50 mcg Versed I.V. 1 mg Heparin Bolus I.V. 4000 units Hemodynamics Rest BSA: 1.94 (m2) O2 Consumption: Estimated: 171.89 (ml/min) O2 Consumption indexed : Estimated:88.6 (ml/min/m) Heart Rate: 57 (bpm) Pressure Samples Time Site Value (mmHg) Purpose Heart Use Rate(bpm) 10:09 LV 126/5,20 Snapshot 63 10:10 AO 143/65(95) Pullback 61 10:10 LV 145/4,45 Pullback 61 Gradients Valve Time Site 1 Site 2 Mean SEP/DFP Peak To Heart Use (mmHg) (sec/min) Peak Rate (mmHg) (bpm) Aortic 10:10 LV AO 12 18 2 61 145/4,45 143/65(95) Calculations Valve P-P Mean Valve Index Valve Source Name Gradient Area Flow (cm2) Aortic 2 12 2 12 Snapshots Pre Cath Intra NCS Post Cath Vital Signs Time Heart Resp SPO2 etCO2 NIBP (mmHg) Rhythm Pain Sedation Rate (ipm) (%) (mmHg) Status Level (bpm) 9:17:58 59 12 100 35.9 150/78(108) NSR 0 (11) 10(A) , No pain 9:22:20 60 12 99 32.9 131/65(91) NSR 0 (11) 10(A) , No pain 9:26:36 57 11 98 38.9 129/63(95) NSR 0 (11) 10(A) , No pain 9:30:52 57 12 98 38.9 138/61(111) NSR 0 (11) 10(A) , No pain 9:35:08 57 14 96 34.4 127/64(88) NSR 0 (11) 10(A) , No pain 9:39:22 56 10 97 35.9 134/66(97) NSR 0 (11) 10(A) , No pain 9:43:38 57 13 96 36.7 122/64(92) NSR 0 (11) 10(A) , No pain 9:47:52 57 12 97 38.1 122/59(92) NSR 0 (11) 10(A) , No pain 9:52:04 57 13 97 36.7 114/65(95) NSR 0 (11) 10(A) , No pain 9:57:09 56 11 97 38.9 125/60(109) NSR 0 (11) 10(A) , No pain 10:01:23 58 13 94 29.9 121/64(81) NSR 0 (11) 10(A) , No pain 10:05:37 58 13 95 32.2 116/60(85) NSR 0 (11) 9(A) , No pain 10:10:40 60 11 94 38.1 116/59(91) NSR 0 (11) 9(A) , No pain 10:14:52 61 12 94 40.4 115/60(76) NSR 0 (11) 9(A) , No pain 10:19:01 59 12 97 35.9 109/61(92) NSR 0 (11) 10(A) , No pain Medications Time Medication Route Dose Verified Delivered Reason Not es Effectiveness by by 9:19:18 0.9% NaCl I.V. 100 Jm Jm Per physician ml/hr Tracy Molina RN RN 9:19:29 Oxygen etCO2 2 l/min Jm Jm for low 02 sats Nasal Tracy Molina cannula BRENDA RN 9:19:41 Heparin Flush added 2 bags Jm Jm used for Bag to Tracy Molina procedure (1000units/500ml field RN RN NS) 9:19:50 Lidocaine 2% added 20ml Jm Jm for local to vial Lorigan Lorigan anesthetic RN RN 9:20:01 Radial Cocktail added 1 Jm Jm used for (Verapamil to syringe Lorigan Lorvera procedure 2mg/Nitro field GUTIERREZ RN 400mcg/Heparin 1500units) 9:50:29 Versed I.V. 1 mg Jm Jm for sedation Tracy Molina RN RN 9:50:36 Fentanyl I.V. 50 mcg Jm Jm for sedation Tracy Molina RN RN 9:57:14 Versed I.V. 1 mg Jm Jm for sedation Tracy Molina RN RN 9:57:19 Fentanyl I.V. 50 mcg Jm Jm for sedation Tracy Molina RN RN 10:04:05 Versed I.V. 1 mg Jm Jm for sedation Tracy Molina RN RN 10:12:59 Heparin Bolus I.V. 4000 Jm Jm for units Lorigan Tracy anticoagulation RN tanning consultant Log Time Note 8:35:28 Informed consent obtained and on chart 8:35:47 Procedure Status Elective Heart Cath (OP). 8:35:48 Time tracking: Regular hours (M-F 7:00 - 5:00) 8:35:52 Plan of Care:Hemodynamics will remain stable., Cardiac rhythm will remain stable., Comfort level will be maintained., Respiratory function will remain adequate., Patient/ family verbilizes understanding of procedure., Procedure tolerated without complication., Recovers from procedure without complications.. 8:37:30 H&P Date Dictated: 07/21/2020 Within 30 days and on chart., H&P Addendum completed by physician on day of procedure. (MUST COMPLETE FOR ALL OUTPATIENTS). 8:38:21 Patient allergic to Other allergyPRAVASTATIN 8:40:39 Stress Test: yes; abnormal ANTERIOR 8:59:57 Jm Molina RN sent for patient. Start room use. 9:07:15 Patient received from Pre/Post Procedure Room to CCL 2 Alert and oriented. Tansferred to table in Supine position. 9:07:23 Warm blankets applied, and manuel hugger turned on for patient comfort. 9:07:23 Correct patient and procedure confirmed by team. 9:16:48 ECG and BP/O2 sat monitors applied to patient. 9:16:48 Vital chart was started 9:16:55 Baseline sample Acquired. 9:16:59 Rhythm: sinus bradycardia 9:16:59 Full Disclosure recording started 9:17:00 Pre-procedure instructions explained to patient. 9:17:00 Pre-op teaching completed and patient verbalized understanding. 9:17:04 Family in patients room. 9:17:07 Patient NPO since Midnight. 9:17:13 Is the patient allergic to Iodine/contrast media? No. 9:17:26 Is patient on blood thinner?No 9:17:28 Patient diabetic? No. 9:17:30 Patient not . Patient is over age 55. 9:17:36 Previous problem with sedation/anesthesia? Yes NAUSEA 9:17:38 Snore? Yes 9:17:39 Sleep apnea? No 9:17:39 Deviated septum? No 9:17:40 Opens mouth fully? Yes 9:17:43 Sticks out tongue? Yes 9:17:44 Airway obstruction? No ? 9:17:49 Dentures? Yes UPPPER AND LOWER 9:17:52 Pre procedure: right dorsailis pedis pulse 1+ Palpable, but thready & weak; easily obliterated 9:17:54 Modified Bishop's test Ulnar < 7 seconds 9:17:57 Patient pain scale 0/10 ?. 9:18:01 IV patent on arrival in right antecubital with 0.9% NaCl at [facility]. 9:18:30 Patient Weight : 187.39 lbs 9:18:36 Patient Height : 65.75 inches 9:18:57 Arrival Date: 07/21/2020 12:00:00 AM 9:19:10 Right Radial & Right Groin area was prepped with chlora-prep and draped in sterile fashion 9:19:11 Alarms reviewed by R. N. 9:19:11 Sharps counted by scrub and verified by R.N. 9:19:18 0.9% NaCl 100 ml/hr I.V. was administered by Jm Molina RN; Per physician; Verbal order read back and verified. 9:19:29 Oxygen 2 l/min etCO2 Nasal cannula was administered by Jm Molina RN; for low 02 sats; Verbal order read back and verified. 9:19:41 Heparin Flush Bag (1000units/500ml NS) 2 bags added to field was administered by Jm Molina RN; used for procedure; Verbal order read back and verified. 9:19:50 Lidocaine 2% 20ml vial added to field was administered by Jm Molina RN; for local anesthetic; Verbal order read back and verified. 9:20:01 Radial Cocktail (Verapamil 2mg/Nitro 400mcg/Heparin 1500units) 1 syringe added to field was administered by Jm Molina RN; used for procedure; Verbal order read back and verified. 9:49:58 --------ALL STOP TIME OUT------ 9:49:58 Final Timeout: patient, procedure, and site verified with staff and physician. All members of the team are in agreement. 9:49:59 Right Radial & Right Groin site verified by team. 9:50:02 Fire Safety Assessment: A--An alcohol-based skin anteseptic being used preoperatively., C--Open oxygen or nitrous oxide is being used., D--An ESU, laser, or fiber-optic light is being used. 9:50:04 Physical assessment completed. ASA score P 2 - A patient with mild systemic disease as per Onofre Mancia MD. 9:50:06 1) 90+ Normal kidney functon but urine findings or structural abnormalities or genetic trait point to kidney disease. 9:50:09 Maximum allowable contrast dose (3.7 X eGFR X 0.75)250 ml. 9:50:11 Sedation plan: IV Moderate Sedation Medication:Versed, Fentanyl 9:50:29 Versed 1 mg I.V. was administered by Jm Molina RN; for sedation; Verbal order read back and verified. 9:50:36 Fentanyl 50 mcg I.V. was administered by Jm Molina RN; for sedation; Verbal order read back and verified. 9:52:04 Use device set Radial Dx or PCI 9:52:06 ACIST Syringe (72141) opened to sterile field. 9:52:07 Bag Decanter () opened to sterile field. 9:52:07 ACIST Hand Control (33770) opened to sterile field. 9:52:07 ACIST Manifold (37224) opened to sterile field. 9:52:08 Tegaderm 4 x 4 (1626W) opened to sterile field. 9:52:17 Medline Cath Pack ([id number]) opened to sterile field. 9:52:19 MBraFedBid Wrist Support ([id number]) opened to sterile field. 9:52:19 NEEDLE Cook 21G 4cm Radial (P17639) opened to sterile field. 9:52:20 EMERALD Guide Wire (502-551) opened to sterile field. 9:52:21 SHEATH 6FR RAIN (9777924) opened to sterile field. 9:56:25 Procedure started. 9:57:14 Versed 1 mg I.V. was administered by mJ Molina RN; for sedation; Verbal order read back and verified. 9:57:19 Fentanyl 50 mcg I.V. was administered by Jm Molina RN; for sedation; Verbal order read back and verified. 9:57:35 Local anesthetic to right radial artery with Lidocaine 2% by Onofre Mancia MD.INITIAL ACCESS ONLY 9:58:36 Zero performed for pressure channel P1 10:01:47 unable to engage RRA 10:02:17 PROCEED TO GROIN 10:02:33 SHEATH 5FR [place] (QNE472) opened to sterile field. 10:03:10 Use device set Multipack Set 10:03:11 DIAGNOSTIC Multipack 5Fr catheter set ([id number]) opened to sterile field. 10:03:52 Local anesthetic to right femoral artery with Lidocaine 2% by Onofre Mancia MD.ADDITIONAL ACCESS 10:03:59 A 5 Fr sheath was inserted into the Right Femoral artery 10:04:05 Versed 1 mg I.V. was administered by Jm Molina RN; for sedation; Verbal order read back and verified. 10:04:56 A MULTIPACK JL 4.0 5Fr catheter was advanced over the wire and used for Procedure. 10:06:23 LCA angiography performed. 10:06:25 Catheter exchanged over wire. 10:06:33 A MULTIPACK 3DRC 5Fr catheter was advanced over the wire and used for Procedure. 10:07:46 RCA angiography performed. 10:07:48 Catheter exchanged over wire. 10:08:40 A MULTIPACK Pigtail 5 Fr catheter was advanced over the wire and used for Procedure. 10:09:52 LV gram done using ROYAL 10:09:54 Injector settings: Ml/sec: 10, Volume: 20, 10:09:55 LV hemodynamics recorded. 10:10:07 EF : 60 % 10:10:15 Catheter exchanged over wire. 10:11:10 proceeding to IFR CX 10:11:36 INFLATOR Merit BasixCompak (OS0305) opened to sterile field. 10:11:40 TUBING High Pressure Extension Tubing (Gavino) ([id number]) opened to sterile field. 10:11:48 [place] OmniWire (14028) opened to sterile field. 10:12:20 A MULTIPACK JL 4.0 5Fr catheter was advanced over the wire and used for Procedure. 10:12:59 Heparin Bolus 4000 units I.V. was administered by Jm Molina RN; for anticoagulation; Verbal order read back and verified. 10:15:34 Pressure wire advanced. 10:15:38 Wire advanced across lesion. 10:15:43 Circ lesion measured at 1 with IFR 10:15:53 Wire removed. 10:15:53 Guide catheter removed. 10:17:18 EXOSEAL 5Fr (EX500) opened to sterile field. 10:18:45 Sheath removed intact; hemostasis achieved with Exoseal to the Right Femoral artery. 10:18:49 Procedure ended.(Physican Out) 10:19:21 Fluoroscopy time 02.80 minutes. 10:19:33 Fluoroscopy dose: 551 mGy 10:19:33 Flurop Dose total: 551 10:19:38 Dose Area Product 03963 mGy/cm. 10:19:41 Contrast amount:Isovue 300 48ml. 10:19:43 Maximum allowable dose exceeded? No. 10:19:45 Sharps counted by scrub and verified by R.N. 10:19:48 Post-op/insertion site Right Femoral artery dressed using a 4 x 4 and Tegaderm. 10:19:59 Post-procedure physical assessment completed. ASA score P 2 - A patient with mild systemic disease as per Onofre Mancia MD. 10:20:18 Post procedure rhythm: sinus bradycardia 10:20:22 Estimated blood loss: 5 ml 10:20:23 Post procedure instruction explained to patient.Patient verbalizes understanding. 10:20:23 Patient needs reinforcement of post procedure teaching. 10:20:52 Procedure type changed to Cath procedure, Diagnostic procedure, LHC, LHC w/Coronaries, FFR/IVUS, FFR Initial, Sedation Charges, Moderate Sedation 25-39 minutes, PCI procedure, Hemochron ACT Test 10:21:32 Procedure and supply charges have been captured, reviewed, submitted and are correct. 10:21:35 Procedure Complication : No complications 10:21:36 Vital chart was stopped 10:21:37 [facility] Findings: mild to moderate CAD (<70%) 10:21:39 Operative report dictated upon procedure completion. 10:21:39 See physician's report for complete and final results. 10:21:40 Report given to Pre/Post Procedure Room. 10:21:42 Patient transfered to Pre/Post Procedure Room with Bed. 10:22:00 Procedure ended. 10:22:00 Full Disclosure recording stopped 10:22:07 End room use (Document Last) 10::26 ACT drawn and resulted at 266 seconds. (normal therapeutic range 180-240 seconds). Device Usage Item Name Manufacture Quantity Catalog Hospital Part Current Minima l Lot# / Number Charge Number Stock Stock Serial# Code ACIST Acist 1 11615 309291 879678 612305 20 Syringe Medical (73839) Systems Inc Bag Microtek 1 2001S 720999 50434 527285 5 Decanter Medical Inc. () ACIST Hand Acist 1 45391 948186 563721 570712 5 Control Medical (40128) Systems Inc ACIST Acist 1 47438 545563 917490 128298 5 Manifold Medical (72142) Systems Inc Tegaderm 4 3M 1 1626W 240939 815762 784113 5 x 4 (1626W) Medline Medline 1 [id number] 739633 54278 602207 5 Cath Pack (UHUK28047) MBrace Advanced 1 140-0250-00 718281 75001 056150 5 Wrist Vascular Support Dynamics ([id number]) NEEDLE Cook Cook Medical 1 [id number] 473881 183559 465863 5 21G 4cm Radial (A27116) EMERALD Cardinal 1 502-455 067083 385147 985247 5 Guide Wire Health (502-455) SHEATH 6FR Cardinal 1 2590844 738883 6430928 678964 5 RAIN Health (2735554) SHEATH 5FR Terumo 1 KMT326 363807 062058 026704 5 [place] (BRC556) DIAGNOSTIC Cardinal 1 RM1439 206847 72198 879575 30 Multipack Health 5Fr catheter set (HP7364) MULTIPACK Cardinal 1 067231 5 JL 4.0 5Fr Health catheter MULTIPACK Cardinal 1 349944 5 3DRC 5Fr Health catheter MULTIPACK Cardinal 1 993357 5 Pigtail 5 Health Fr catheter INFLATOR Merit 1 FR1438 828253 608952 517738 15 Merit Medical BasixCompak (FB4324) TUBING High Merit 1 [id number] 518917 63027 092335 10 Pressure Medical Extension Tubing (Mancia) ([id number]) [place] 1 5463332 709001 45584 9957 5 OmniWire (02315) EXOSEAL 5Fr Cardinal 1 EX500 883526 890526 152162 10 (EX500) Health Signature Audit Pierce Stage Time Signature Unsigned Intra-Procedure 07/21/2020 Myrna Patiño 10:25:51 AM RT(R) Intra-Procedure 07/21/2020 Jm 10:28:52 AM Tracy GUTIERREZ Intra-Procedure 07/21/2020 Onofre Mancia MD 10:29:30 AM Signatures Performing Physician : Signature : Onofre Mancia MD Date : Time : Monitor : Myrna Patiño Signature : RT Date : Time : Nurse : Jm Molina Signature : RN Date : Time : [facility] [address] [place] [address]
[~2020-07-21 07:48] MED LIST changes: +BUPROPION HCL150 M1 PO; +BUSPAR 15 MG TA15 MG PO; -HYDROCODON-ACE1 EAC7; +HYDROCODON-ACE1 EAC7 PO; +LIPITOR20 MG PO; +TOPROL XL50 MG PO
[2020-07-21] MEDS ORDERED: LIPITOR10 MG PO (08:05)
[2020-07-21] MEDS ORDERED: TRAZODONE HCL50 MG PO (08:06)
[2020-07-21] MEDS ORDERED: BACLOFEN20 M1 PO (08:07)
[2020-07-21] MEDS ORDERED: GABAPENTIN100 MG PO (08:08)
[2020-07-21] MEDS ORDERED: ABILIFY10 MG PO (08:08)
[2020-07-21 08:17] VITALS: BP 128/59; Ht 167.6 cm; Wt 85.5 kg
[2020-07-21 08:51] LABS: ALT (SGPT) 20 U/L (10-68); CALC OSMOLALITY 284 mosm/kg (275-300); CALCIUM 8.6 mg/dL (8.5-10.1); CARBON DIOXIDE 28.5 mmol/L (21.0-32.0); CHLORIDE - SERUM 105 mmol/L (98-107); CHOL - HDL RATIO 3.3 ratio (2.3-4.1); CHOLESTEROL, TOTAL 151 mg/dL (0-200); CREATININE - SERUM 0.6 mg/dL (0.6-1.3); GLUCOSE 93 mg/dL (74-106); HDL CHOLESTEROL 46 mg/dL (32-96); LDL CHOLESTEROL 94 mg/dL (0-100); SODIUM 142 mmol/L (136-145); TRIGLYCERIDE 57 mg/dL (30-200); UREA NITROGEN 19 mg/dL (7-18); eGFR NON AFRICAN AMERICAN > 90 mL/min (90-120)
[2020-07-21 09:27] LABS: BASOPHILS 0.5 % (0-2); EOSINOPHILS 2.3 % (0-7); HEMATOCRIT 36.8 % (36.0-48.0); HEMOGLOBIN 11.5 g/dL (12-16); IMMATURE GRANULOCYTES 0.2 % (0-5); LYMPHOCYTE ABS# 2.09 10x3/uL (1.18-3.74); LYMPHOCYTES 34.8 % (15-50); MCH 26.2 pg (26.0-34.0); MCHC 31.3 g/dL (31.0-37.0); MCV 83.8 fL (80.0-100.0); MEAN PLATELET VOLUME 9.9 fL (7.4-10.4); NEUTROPHIL ABS# 3.31 10x3/uL (1.56-6.13); NEUTROPHILS 55.2 % (40-80); PLATELET COUNT 287 10x3/uL (130-400); RBC 4.39 10x6/uL (4.00-5.40); RDW 16.6 % (11.5-14.5)
--- NOTE | 2020-07-21 10:35 | NUR ---
PT REC'D TO CATH RECOVERY ROOM 7 VIA STRETCHER. MONITORS ESTAB. DAUGHTER AT BS. SEE RN ASSESSEMET FLOWSHEETS. ALARMS ON AND C/L IN REACH.
--- NOTE | 2020-07-21 10:50 | NUR ---
R GROIN EXOSEAL SITE SOFT, NO S/S BLEEDING OR HEMATOMA. PULSES PALP. CAP REFILL WNL. PT DENIES PAIN OR NEEDS. ALARMS ON AND C/L IN REACH.
--- NOTE | 2020-07-21 11:07 | NUR ---
DR. NAVA AT BS, UPDATED PT AND DAUGHTER.
--- NOTE | 2020-07-21 11:20 | NUR ---
PT RESTING QUIETLY, R GROIN SITE SOFT, NO S/S BLEEDING OR HEMATOMA. PULSES PALP. VSS. ALARMS ON AND C/L IN REACH.
--- NOTE | 2020-07-21 11:30 | NUR ---
PT VOIDED 300ML CLEAR YELLOW URINE, PARTIALLY ON BED/AND ON BED STARK. RODOLFO-CARE AND LINEN CHANGE DONE. R GROIN SITE SOFT, C/D/I. NO S/S BLEEDING OR HEMATOMA. PULSES PALP. ALARMS ON AND C/L IN REACH.
--- NOTE | 2020-07-21 12:00 | NUR ---
R GROIN SITE SOFT, NO S/S BLEEDING OR HEMATOMA. PULSES PALP. PT DENIES PAIN OR NEEDS. ALARMS ON AND C/L IN REACH.
--- NOTE | 2020-07-21 12:30 | NUR ---
R GROIN SITE SOFT, C/D/I. HOB ELEVATED GRADUALLY. SANDWICH AND COLA PROVIDED. DAUGHTER AT BS.
--- NOTE | 2020-07-21 12:50 | NUR ---
PT ATE ALL OF SANDWICH. DENIES PAIN OR NEEDS. R GROIN SITE SOFT, NO S/S BLEEDING. PULSES PALP.
--- NOTE | 2020-07-21 13:01 | NUR ---
ALL DISCHARGE INSTRUCTIONS REVIEWED WITH PT AND HER DAUGHTER, INCLUDING RESTRICTIONS, MEDS AND F/U APPT. BOTH VERBALIZE UNDERSTANDING. PIV D/C'D INTACT, DSG APPLIED. PT ALLOWED UP TO GET DRESSED AND GO TO BR INDEPENDENTLY.
--- NOTE | 2020-07-21 13:19 | NUR ---
PT D/C'D VIA WC TO PRIVATE VEHICLE WITH ALL BELONGINGS AND PAPERWORK.
== END 2020-07-21 13:19 | disposition home or self-care (01) ==
LOC: D.CATH 07:48
PROVIDERS: ATTEND Internal Medicine Cardiovascular Disease
DX: R94.39 Abnormal result of other cardiovascular function study (principal); I10 Essential (primary) hypertension; Z95.5 Presence of coronary angioplasty implant and graft; R07.9 Chest pain, unspecified; I34.0 Nonrheumatic mitral (valve) insufficiency